=== PATIENT | male | born 1980 | race Caucasian/White ===

== ENCOUNTER 2018-10-27 14:55 | Emergency (ER) | payer BC ==
[~2018-10-27] VITALS: Ht 182.9 cm; Wt 93.4 kg
[2018-10-27 15:39] LABS: ABSOLUTE NEUTROPHILS 3.5 thou/uL (1.4-8.2); EOSINOPHILS 2.1 % (0.0-3.0); HEMATOCRIT 44.7 % (42.0-52.0); HEMOGLOBIN 15.7 gm/dL (14.0-18.0); LYMPHOCYTES 31.4 % (24.0-44.0); MCH 29.1 pg (26.0-34.0); MCHC 35.2 g/dL (28.0-37.0); MCV 82.7 fL (80.0-100.0); MONOCYTES 6.3 % (1.0-8.0); PLATELET COUNT 212 thou/uL (150-400); POLYS 59.2 % (36.0-66.0); RDW 13.7 % (10.5-14.5); WBC 5.9 thou/uL (4.0-11.0)
[2018-10-27 15:49] LABS: ANION GAP 9 mmol/L (7-16); BUN 20 mg/dL (7-18); CALCIUM 8.6 mg/dL (8.5-10.1); CHLORIDE 102 mmol/L (98-107); CO2 27 mmol/L (21-32); CREATININE 0.9 mg/dL (0.7-1.3); GLUCOSE 186 mg/dL (74-106); POTASSIUM 3.8 mmol/L (3.5-5.1); SODIUM 138 mmol/L (136-145)
[2018-10-27 15:55] LABS: ALBUMIN 4.1 g/dL (3.4-5.0); MAGNESIUM 2.2 mg/dL (1.8-2.4); TOTAL BILIRUBIN 0.6 mg/dL (<0.1-1.0); TROPONIN-I <0.06 ng/mL (<0.06)
[2018-10-27 15:59] LABS: SGOT 26 U/L (15-37); SGPT 15 U/L (30-65); TOTAL PROTEIN 7.5 g/dL (6.4-8.2)
[2018-10-27 17:14] VITALS: BP 107/88
--- NOTE | 2018-10-31 07:42 | EKG ---
[address] [place] [address] ELECTROCARDIOGRAM REPORT Name: YONATHAN HERRING [id number] Admission: 10/27/18 Attend Phys: Discharge: 10/27/18 Date of : 78 Report #: [id number] THIS REPORT FOR: //name// [facility] ED Test Date: 2018-10-27 Test Time: 15:01:49 Pat Name: YONATHAN HERRING Department: Room: Gender: Telephone Solicitor: [place] : 1980 Requested By: Scott Sandra Order Number: [id number] MD: Deonte Womack Measurements Intervals [place] Rate: 94 P: 44 NC: 183 QRS: 40 QRSD: 84 T: 6 QT: 323 QTc: 404 Interpretive Statements Sinus rhythm Nonspecific ST segment abnormality No previous ECG available for comparison Electronically Signed On 10-31-2018 7:42:15 CDT by Deonte Womack [email or web address] <ELECTRONICALLY SIGNED> By: Deonte Womack MD, [facility] 10/31/18 0742 1501 1501 Deonte Womack MD, FACC /EPI
== END 2018-10-27 17:20 | disposition home or self-care (01) ==
LOC: ER 14:55
PROVIDERS: Emergency Medicine
DX: R07.89 Other chest pain (principal)